=== PATIENT | female | born 1980 | race Caucasian/White ===

== ENCOUNTER 2019-05-04 10:55 | Emergency (ER) | payer BC ==
[~2019-05-04] VITALS: Ht 160 cm; Wt 60.0 kg
--- NOTE | 2019-05-04 11:12 | NUR ---
PT TOOK IBUPROFEN DOSE AT APPROX 8 AM TODAY
[2019-05-04 11:28] LABS: URINE HCG NEGATIVE (NEG)
[2019-05-04 11:37] LABS: COLOR,URINE ORANGE (Yellow); UA COLLECTION TYPE CLN CATCH MIDSTREAM
[2019-05-04 11:38] LABS: CLARITY,URINE CLOUDY (Clear)
--- NOTE | 2019-05-04 11:38 | NUR ---
PT IS ON PYRIDIUM. URINE IS ORANGE. LAB CALLED AND REPORTED THAT UA IS ORANGE AND SOME OF THE RESULTS ARE INCONCLUSIVE.
[2019-05-04 11:39] LABS: WBC,URINE TNTC /HPF (0-4)
[2019-05-04 11:41] LABS: BACTERIA,URINE 3+ /HPF (Neg); MUCUS STRANDS MODERATE /LPF (Neg); SQUAMOUS EPITHELIAL CELL,UR MODERATE /LPF (FEW); WBC CLUMPS,URINE MANY /HPF (NEGATIVE)
[2019-05-04] MEDS ORDERED: CefTRIAXone 2gm/D5W 50ml 50 ML IV ONE (11:50)
[2019-05-04] MEDS ORDERED: morphine 4 MG/ML inj SYRINge IV PRN (11:50)
[2019-05-04] MEDS ORDERED: ketorolac tromethamine 15mg/ml inj. IV ONE (11:50)
[2019-05-04] MEDS ORDERED: acetaminophen 325mg tablet PO STA (11:50)
[2019-05-04] MEDS ORDERED: normal saline 1000ML IV soln IV ONE (11:50)
[2019-05-04] MEDS ORDERED: ondansetron/PF 4mg/2ml inj IV ONE (11:50)
[2019-05-04 12:22] LABS: BASOPHILS % (AUTO) 0.1 % (0-1); EOSINOPHILS % (AUTO) 0 % (0-6); HEMATOCRIT 38.3 % (35.0-45.0); HEMOGLOBIN 13.3 g/dl (12.0-16.0); LYMPHOCYTES % (AUTO) 7.6 % (21-51); MEAN CORPUSCULAR HEMOGLOBIN 32.8 PG (27.0-31.0); MEAN CORPUSCULAR HGB CONC 34.9 g/dL (33.0-36.5); MEAN PLATELET VOLUME 8.1 FL (7.4-10.4); MONOCYTES # (AUTO) 1.6 X10'3 (0-0.9); NEUTROPHILS # (AUTO) 10.6 X10'3 (1.8-7.7); NEUTROPHILS % (AUTO) 80.3 % (42-75); PLATELET COUNT 198 X10'3 (140-440); RED BLOOD COUNT 4.07 X10'6 (4.20-5.60); RED CELL DISTRIBUTION WIDTH 13.1 % (11.5-14.5); WHITE BLOOD COUNT 13.2 X10'3 (4.5-11.0)
[2019-05-04 12:37] LABS: ALANINE AMINOTRANSFERASE 16 U/L (12-78); ALBUMIN 3.2 G/DL (3.4-5.0); ALBUMIN/GLOBULIN RATIO 0.9 (1.1-1.5); ALKALINE PHOSPHATASE 56 IU/L (46-116); ANION GAP 7 (8-16); ASPARTATE AMINO TRANSFERASE 15 U/L (10-37); BILIRUBIN,TOTAL 0.6 MG/DL (0.1-1.0); BLOOD UREA NITROGEN 7 MG/DL (7-18); BUN/CREATININE RATIO 7.7 (6.6-38.0); CALCIUM 8.5 MG/DL (8.5-10.1); CHLORIDE 104 MMOL/L (99-107); CREATININE 0.91 MG/DL (0.40-0.90); GLUCOSE 105 MG/DL (70-104); MAGNESIUM 1.6 MG/DL (1.5-2.4); POTASSIUM 3.7 MMOL/L (3.5-5.1); SODIUM 136 MMOL/L (135-145); TOTAL CARBON DIOXIDE 25.4 MMOL/L (24-32); TOTAL PROTEIN 6.6 G/DL (6.4-8.2); eGFR 69 ML/MIN
[2019-05-04] MEDS ORDERED: CEPH500C5 PO (13:41)
[2019-05-04] MEDS ORDERED: HYDR-4353 PO (13:41)
[2019-05-04 13:59] VITALS: BP 107/61
== END 2019-05-04 14:02 | disposition home or self-care (01) ==
LOC: ER 10:56
DX: N10 Acute pyelonephritis (principal); F17.200 Nicotine dependence, unspecified, uncomplicated; Z98.890 Other specified postprocedural states; Z88.5 Allergy status to narcotic agent; Z79.2 Long term (current) use of antibiotics; Z79.899 Other long term (current) drug therapy
CPT/HCPCS: 36415; 74176; 80053; 81001; 81025; 83605; 83735; 84145; 85025; 87040; 87088; 87186; 93005; 96365; 96375; 99284; J0696; J1885; J2270; J2405; J7030; 87077

== ENCOUNTER 2020-02-11 20:21 | Emergency (ER) | payer BC ==
[~2020-02-11] VITALS: Ht 160 cm; Wt 56.4 kg
[~2020-02-11 20:21] MED LIST: CEPH500C5 PO
[2020-02-11 20:50] LABS: CLARITY,URINE CLEAR (Clear); COLOR,URINE STRAW (Yellow); GLUCOSE, URINE NEGATIVE (Neg); KETONES,URINE NEGATIVE (Neg); LEUKOCYTE ESTERASE ,URINE TRACE (Neg); NITRITES, URINE NEGATIVE (Neg); OCCULT BLOOD,URINE LARGE (Neg); PROTEIN,URINE NEGATIVE (Neg); UROBILINOGEN,URINE 0.2 E.U/dL (0.2-1.0)
[2020-02-11 20:54] LABS: UA COLLECTION TYPE CLN CATCH MIDSTREAM
[2020-02-11 20:57] LABS: BACTERIA,URINE NONE SEEN /HPF (Neg); RBC,URINE NONE SEEN /HPF (0-2); WBC,URINE NONE SEEN /HPF (0-4)
[2020-02-11 20:58] LABS: SQUAMOUS EPITHELIAL CELL,UR FEW /LPF (FEW)
[2020-02-11 21:02] LABS: BASOPHILS % (AUTO) 0.4 % (0-1); EOSINOPHILS # (AUTO) 0.1 X10'3 (0-0.9); EOSINOPHILS % (AUTO) 1.4 % (0-6); HEMATOCRIT 40.3 % (35.0-45.0); HEMOGLOBIN 13.7 g/dl (12.0-16.0); LYMPHOCYTES # (AUTO) 2.5 X10'3 (1.1-4.8); MEAN CORPUSCULAR HEMOGLOBIN 33.1 PG (27.0-31.0); MEAN CORPUSCULAR HGB CONC 34.1 g/dL (33.0-36.5); MEAN CORPUSCULAR VOLUME 97.1 FL (78-98); MEAN PLATELET VOLUME 7.8 FL (7.4-10.4); MONOCYTES # (AUTO) 0.7 X10'3 (0-0.9); NEUTROPHILS # (AUTO) 6.3 X10'3 (1.8-7.7); NEUTROPHILS % (AUTO) 65.2 % (42-75); PLATELET COUNT 262 X10'3 (140-440); RED BLOOD COUNT 4.15 X10'6 (4.20-5.60); RED CELL DISTRIBUTION WIDTH 12.9 % (11.5-14.5); WHITE BLOOD COUNT 9.6 X10'3 (4.5-11.0)
--- NOTE | 2020-02-11 21:04 | NUR ---
Dr. Linn is at the bedside at this time.
[2020-02-11] MEDS ORDERED: ondansetron 4mg rapidly disintigrating tab PO ONE (21:05)
[2020-02-11 21:15] LABS: ALANINE AMINOTRANSFERASE 16 U/L (12-78); ALBUMIN 3.7 G/DL (3.4-5.0); ALBUMIN/GLOBULIN RATIO 1.2 (1.1-1.5); ALKALINE PHOSPHATASE 57 IU/L (46-116); ANION GAP 8 (8-16); ASPARTATE AMINO TRANSFERASE 21 U/L (10-37); BILIRUBIN,TOTAL 0.4 MG/DL (0.1-1.0); BLOOD UREA NITROGEN 13 MG/DL (7-18); BUN/CREATININE RATIO 14.3 (6.6-38.0); CALCIUM 8.8 MG/DL (8.5-10.1); CHLORIDE 104 MMOL/L (99-107); CREATININE 0.91 MG/DL (0.40-0.90); GLUCOSE 103 MG/DL (70-104); LIPASE 270 U/L (73-393); POTASSIUM 3.9 MMOL/L (3.5-5.1); SODIUM 138 MMOL/L (135-145); TOTAL CARBON DIOXIDE 26.2 MMOL/L (24-32); TOTAL PROTEIN 6.8 G/DL (6.4-8.2); eGFR 69 ML/MIN
[2020-02-11 22:02] VITALS: BP 124/81
== END 2020-02-11 22:04 | disposition home or self-care (01) ==
LOC: ER 20:21
DX: R10.31 Right lower quadrant pain (principal); R31.9 Hematuria, unspecified; R11.0 Nausea; Z87.440 Personal history of urinary (tract) infections; Z98.890 Other specified postprocedural states; Z72.89 Other problems related to lifestyle; Z88.5 Allergy status to narcotic agent; Z79.2 Long term (current) use of antibiotics
CPT/HCPCS: 36415; 74176; 80053; 81001; 83690; 85025; 87088; 99284